=== PATIENT | male | born 1950 | race Caucasian/White ===

== ENCOUNTER 2017-12-10 10:35 | Emergency (ER) | payer OTHER ==
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
[2017-12-10] MEDS ORDERED: LR(*) 1000 ML BAG 1,000 ML IV ONE (11:05)
[2017-12-10] MEDS ORDERED: ACETAMINOPHEN 325 MG TAB PO ONE (11:10)
[2017-12-10 11:42] LABS: PLATELET COUNT, AUTOMATED 266 K/uL (150-450)
--- NOTE | 2017-12-10 11:47 | EKG ---
FACILITY: [facility] PATIENT NAME: TAYLOR ENCINAS : [id number] MR: [id number] V: [id number] EXAM DATE: ORDERING PHYSICIAN: SALMA ANN TECHNOLOGIST: ARABELLA Blanco Reason : BACK PAIN Blood Pressure : / mmHG Vent. Rate : 084 BPM Atrial Rate : 084 BPM P-R Int : 194 ms QRS Dur : 108 ms QT Int : 362 ms P-R-T Axes : 042 -58 061 degrees QTc Int : 427 ms Normal sinus rhythm Left anterior fascicular block Minimal voltage criteria for LVH, may be normal variant Abnormal ECG When compared with ECG of 01-JUL-2017 07:56, premature atrial complexes are no longer present TX interval has decreased Nonspecific T wave abnormality no longer evident in Inferior leads Confirmed by ANGELITO CHO ([id number]) on 12/10/2017 12:08:10 PM Referred By: SETH Confirmed By:ANGELITO CHO
--- NOTE | 2017-12-10 11:49 | RADIOLOGY IMAGING REPORT ---
FACILITY: [facility] PATIENT NAME: Alexy Linton : 1950 MR: [id number] V: [id number] EXAM DATE: ORDERING PHYSICIAN: SALMA ANN TECHNOLOGIST: Location: [facility] Patient: Alexy Linton : 1950 Visit/Account:[id number] Date of Sevice: 12/10/2017 EXAMINATION: CT Head without intravenous contrast HISTORY: Blurry vision. TECHNIQUE: Axial images were obtained from the skull base to the vertex without intravenous contrast . Sagittal and coronal reformatted images are also submitted. One of the following dose optimization techniques was utilized in the performance of this exam: Autom ated exposure control; adjustment of the mA and/or kV according to the patient's size; or use of an i terative reconstruction technique. Specific details can be referenced in the facility's radiology C T exam operational policy. COMPARISON: None. FINDINGS: Brain volume: Normal. Ventricles: Negative. Acute ischemic changes: None. Hemorrhage: None. Masses / edema: None. Bliss-white: Negative. White matter: Negative. Vessels: Carotid siphon calcifications. Normal density in the dural venous sinuses. Extra-axial: Negative. Calvarium / skull base: Negative. Visualized sinuses / orbits: Leftward nasal septal deviation. Otherwise negative. IMPRESSION: No acute intracranial abnormality. Report Dictated By: Arben Stoll MD at 12/10/2017 11:38 AM Report E-Signed By: Arben Stoll MD at 12/10/2017 11:45 AM WSN:[id number]
[2017-12-10] MEDS ORDERED: KETOROLAC 15 MG/ML VIAL IVP ONE (11:55)
[2017-12-10 12:00] VITALS: BP 152/85
[2017-12-10] MEDS ORDERED: LEVI SUBQ (12:10)
== END 2017-12-10 12:31 | disposition home or self-care (01) ==
LOC: ER 10:44
DX: H53.8 Other visual disturbances (principal); R51 Headache; V49.40XA Driver injured in collision with unspecified motor vehicles in traffic accident, initial encounter; R94.31 Abnormal electrocardiogram [ECG] [EKG]
CPT/HCPCS: 70450; 81001; 85025; 93005; 96361; 96374; 99284; J1885; J7120; 82040; 82247; 82310; 82374; 82435; 82565; 82947; 84075; 84132; 84155; 84295; 84450; 84460; 84520

== ENCOUNTER → 2017-12-10 | Outpatient (CLI) | payer OTHER ==
[~2017-12-10] MED LIST: AZIT-101 PO; DOCU240C84 PO; ENAL20TA99 PO; HYDR-3250 PO; LEVI SUBQ; METH4TAB57 PO; METXR500 PO; OXYC-865 PO; SIMV-49 PO; SYRI1DIS MC; TAM4 PO; TRAM-420 PO
== END ==
LOC: AMB 10:17
PROVIDERS: ATTEND Nurse Practitioner
DX: H53.9 Unspecified visual disturbance (principal); V49.9XXA Car occupant (driver) (passenger) injured in unspecified traffic accident, initial encounter
CPT/HCPCS: A0425; A0429

== ENCOUNTER → 2018-02-20 | Outpatient (REF) ==
[~2018-02-20] MED LIST changes: +GADOBENATE 529MG/1ML 15ML VIAL IVP ONE
--- NOTE | 2018-02-20 12:35 | RADIOLOGY IMAGING REPORT ---
[place] [facility] [place] NAME: Alexy Linton : 1950 MR: [id number] V: [id number] EXAM DATE: ORDERING PHYSICIAN: NEWTON CASTELLANOS TECHNOLOGIST: [place] [facility] [place] [place]y L[place] : 1950 Visit/Account:[id number] Date of Sevice: 02/20/2018 Examination: MR brain without and with contrast History: Cognitive impairment Comparison: Head CT December 2017 Technique: Multiplane MR imaging was performed through the brain without and with contrast. 15 cc IV multihance was administered. Findings: Diffusion: None Ventricles: Normal Midline shift: None Extraxial fluid: None Midline craniocervical structures: Normal Parenchyma: Greater than 10 scattered punctate to small white matter high signal foci. Enhancement: No pathologic enhancement Vascular flow voids: Normal Orbits and paranasal sinuses: Normal Impression: 1. No acute finding. 2. Minimal to mild chronic small vessel ischemic change. 3. Otherwise normal brain MR without and with contrast. Report Dictated By: Rai Hill MD at 02/20/2018 12:28 PM Report E-Signed By: Rai Hill MD at 02/20/2018 12:31 PM WSN:[id number]
== END ==
LOC: MRI 02:02
PROVIDERS: ATTEND Nurse Practitioner
DX: R41.89 Other symptoms and signs involving cognitive functions and awareness (principal)
CPT/HCPCS: 70553; A9577